=== PATIENT | female | born 1965 | race Caucasian/White ===

== ENCOUNTER 2025-04-29 06:43 | Day surgery (SDC) | payer OTHER ==
[2025-04-28 10:07] VITALS: BMI 50.6
[2025-04-29] MEDS ORDERED: METOCLOPRAMIDE HCL INJECTION 10 MG/2 ML VIAL ONE (08:40)
[2025-04-29] MEDS ORDERED: ONDANSETRON 4 MG/2 ML VIAL ONE (08:40)
[2025-04-29] MEDS ORDERED: DEXAMETHASONE SOD PHOSPHATE 4 MG/1 ML VIAL ONE (08:40)
[2025-04-29] MEDS ORDERED: ceFAZolin SODIUM 1 GM VIAL ONE (08:40)
[2025-04-29] MEDS ORDERED: GLYCOPYRROLATE 0.2 MG/1 ML VIAL ONE (08:40)
[2025-04-29] MEDS ORDERED: LIDOCAINE HCL/PF 2% SDV 5ML VIAL ONE (08:40)
[2025-04-29] MEDS ORDERED: PROPOFOL 20 ML ONE (08:42)
[2025-04-29] MEDS ORDERED: MIDAZOLAM HCL 2 MG/2 ML SINGLE DOSE VIAL ONE (08:43)
[2025-04-29] MEDS ORDERED: LIDOCAINE HCL 1%, 10 MG/ML (20ML VIAL) ONE (08:52)
[2025-04-29] MEDS ORDERED: ALBUTEROL SO4 HFA INHALER IH ONE (09:42)
[2025-04-29] MEDS: ceFAZolin SODIUM 1 GM VIAL IVPB ONE (10:00)
[2025-04-29] MEDS ORDERED: KETAMINE HCL 200 MG/20 ML VIAL ONE (10:05)
[2025-04-29] MEDS ORDERED: ESMOLOL HCL 100,000 MCG/10 ML VIAL ONE (10:06)
[2025-04-29] MEDS ORDERED: ACETAMINOPHEN INJECTION 100 ML ONE (10:09)
[2025-04-29] MEDS ORDERED: ISOSULFAN BLUE 50 MG/5 ML VIAL SQ ONE (10:19)
[2025-04-29] MEDS: LIDOCAINE HCL 1%, 10 MG/ML (20ML VIAL) INF ONE ×2 (10:32)
[2025-04-29] MEDS ORDERED: oxyCODONE HCL 5 MG TABLET PO PRN (11:32)
[2025-04-29] MEDS ORDERED: LACTATED RINGERS SOLUTION 1,000 ML IV SCH (11:45)
[2025-04-29 12:47] VITALS: TEMP 97.7
[2025-04-29 14:11] VITALS: BP 113/52; PULSE 92; RESP 16
== END 2025-04-29 15:12 | disposition home or self-care (01) ==
LOC: JASU-SURG 06:43
PROVIDERS: ATTEND Surgery
PROC: 0HBU0ZZ Excision of Left Breast, Open Approach (ICD-10-PCS; principal; 2025-04-29 09:00)
DX: C50.912 Malignant neoplasm of unspecified site of left female breast (principal)
CPT/HCPCS: 78195-TC; 82962; 88307-TC; 88342-TC; 94760; A9541

== ENCOUNTER 2025-07-03 06:55 | Emergency (ER) | payer OTHER ==
[2025-07-03 07:09] VITALS: TEMP 98.1; BMI 51.0
[2025-07-03 08:54] VITALS: BP 110/65; PULSE 85; RESP 18
== END 2025-07-03 08:58 | disposition home or self-care (01) ==
LOC: JER 06:55
DX: T82.838A Hemorrhage due to vascular prosthetic devices, implants and grafts, initial encounter (principal)
CPT/HCPCS: 99283-25